=== PATIENT | female | born 1970 | race Caucasian/White ===

== ENCOUNTER 2021-06-14 14:30 | Emergency (ER) | payer OTHER ==
[~2021-06-14] VITALS: Ht 162.6 cm; Wt 58.6 kg
[2021-06-14 15:01] VITALS: BP 108/72
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
--- NOTE | 2021-06-14 16:13 | NUR ---
[employer] called will send an officer when available.
--- NOTE | 2021-06-14 17:04 | NUR ---
[employer] here. PATIENT DOES NOT WANT A SART KIT DONE, JUST WANTS TO BE SEEN FOR VAGINAL AND RECTAL PAIN.
[2021-06-14] MEDS ORDERED: azithromycin 250mg tablet PO ONE (19:20)
[2021-06-14] MEDS ORDERED: CefTRIAXone 1000mg IM Kit (w/lidocaine diluent) IM STA (19:20)
--- NOTE | 2021-06-14 20:35 | NUR ---
Pt is being discharged. Instructions given and questions answered. Walked out with geriatric social work professor.
[2021-06-15] MEDS ORDERED: METR-159 PO (15:47)
[2021-06-15] MEDS ORDERED: DOXY-11 PO (15:47)
== END 2021-06-14 20:39 | disposition home or self-care (01) ==
LOC: ER 14:31
DX: N73.0 Acute parametritis and pelvic cellulitis (principal); Z79.2 Long term (current) use of antibiotics; Z79.899 Other long term (current) drug therapy
CPT/HCPCS: 96372; 99284; J0696; 99283

== ENCOUNTER 2021-06-15 14:04 | Emergency (ER) | payer OTHER ==
[~2021-06-15] VITALS: Ht 162.6 cm; Wt 58.0 kg
[2021-06-15 14:19] VITALS: BP 125/90
[2021-06-15] MEDS ORDERED: cyclobenzaprine 10mg tablet PO ONE (15:20)
[2021-06-15] MEDS ORDERED: HYDROcodone/acetaminophen 10/325mg tab PO ONE (15:20)
[2021-06-15] MEDS ORDERED: METR-159 PO (15:47)
[2021-06-15] MEDS ORDERED: DOXY-11 PO (15:47)
[2021-06-15] MEDS ORDERED: DOXYCYCLINE 100MG CAPSULE PO STA (15:49)
[2021-06-15] MEDS ORDERED: metroNIDAZOLE 500mg tablet PO ONE (15:50)
== END 2021-06-15 16:18 | disposition home or self-care (01) ==
LOC: ER 14:05
DX: N73.9 Female pelvic inflammatory disease, unspecified (principal); R10.2 Pelvic and perineal pain; R10.30 Lower abdominal pain, unspecified
CPT/HCPCS: 99284

== ENCOUNTER 2021-12-11 07:29 | Emergency (ER) | payer OTHER ==
[~2021-12-11] VITALS: Ht 162.6 cm; Wt 59.5 kg
[2021-12-11 07:35] VITALS: BP 125/91
--- NOTE | 2021-12-11 07:54 | NUR ---
Patient requesting entry level sales representative to be with her, [facility] called spoke with Ramón. She stated that she just got to the office and will call back in approx. 10 min.
[2021-12-11] MEDS ORDERED: DOXY100C43 PO (23:10)
[2021-12-12] MEDS ORDERED: ONDA4TAB12 PO (15:42)
[2021-12-12] MEDS ORDERED: NAPR-1154 PO (15:42)
== END 2021-12-11 08:08 | disposition left against medical advice (07) ==
LOC: ER 07:30 → EEVIPCON 07:30 → ER 08:08
DX: T74.21XA Adult sexual abuse, confirmed, initial encounter (principal); Z53.21 Procedure and treatment not carried out due to patient leaving prior to being seen by health care provider

== ENCOUNTER 2021-12-11 19:13 | Emergency (ER) | payer OTHER, MEDICAID ==
[~2021-12-11] VITALS: Ht 162.6 cm; Wt 63.0 kg
--- NOTE | 2021-12-11 19:45 | NUR ---
PT HAS BEEN ROOMED. PT HAD CHECKED IN EARLIER TODAY AND LEFT PRIOR TO CHECKING IN AGAIN. PT DOES HAVE AN ADVOCATE. [facility] HAS BEEN CALLED. THEY STATED ADVOCATE IS ON HER WAY TO THE HOSPITAL. THEY DID NOT SAY WHETHER THE SART PROCESS NEEDS TO BE INITIATED AT THIS TIME OR NOT.
[2021-12-11] MEDS ORDERED: LORazepam 1 MG tablet PO ONE (20:30)
--- NOTE | 2021-12-11 20:32 | NUR ---
ADVOCATE IS IN THE ROOM WITH PT. IT IS WAS UNCLEAR WHETHER [facility] WAS CALLED EARLIER OR IF [facility] HAD CALLED PREVIOUSLY. I CALLED [facility] AND FILED A REPORT. CASE NUMBER IS [id number]. OFFICER WILL CONTACT WHETHER A SART IS APPROVED.
[2021-12-11] MEDS ORDERED: acetaminophen 325mg tablet PO ONE (21:30)
[2021-12-11] MEDS ORDERED: DOXY100C43 PO (23:10)
[2021-12-12 01:05] LABS: CLARITY,URINE CLEAR (Clear); COLOR,URINE YELLOW (Yellow); GLUCOSE, URINE NEGATIVE (Neg); KETONES,URINE NEGATIVE (Neg); LEUKOCYTE ESTERASE ,URINE NEGATIVE (Neg); NITRITES, URINE NEGATIVE (Neg); OCCULT BLOOD,URINE NEGATIVE (Neg); PH,URINE 5.5 (4.8-8.0); PROTEIN,URINE NEGATIVE (Neg); UROBILINOGEN,URINE 0.2 E.U/dL (0.2-1.0)
[2021-12-12 01:10] LABS: UA COLLECTION TYPE CLN CATCH MIDSTREAM
[2021-12-12] MEDS ORDERED: acetaminophen 325mg tablet PO ONE (01:55)
[2021-12-12] MEDS ORDERED: CefTRIAXone 500MG IM Kit w/LIDOcaine (for pt below or = to 150kg) IM ONE (02:55)
[2021-12-12] MEDS ORDERED: azithromycin 250mg tablet PO ONE (02:55)
[2021-12-12] MEDS ORDERED: TINIDAZOLE 500 MG TABLET PO ONE (02:55)
[2021-12-12] MEDS ORDERED: ketorolac tromethamine 15mg/ml inj. IM ONE (05:45)
--- NOTE | 2021-12-12 07:54 | NUR ---
pt was placed in SART room for exam. consents signed by pt. and witnessed by RN. Advocate from [facility] in room with pt. Exam performed, documented and results sent to [facility]. Pt given clothing and showered. will call taxi for transportation to [facility].
[2021-12-12 07:58] VITALS: BP 123/89
[2021-12-12] MEDS ORDERED: ONDA4TAB12 PO (15:42)
[2021-12-12] MEDS ORDERED: NAPR-1154 PO (15:42)
== END 2021-12-12 08:00 | disposition home or self-care (01) ==
LOC: ER 19:13 → EEVIPCON 19:13 → ER 23:09
DX: T74.21XA Adult sexual abuse, confirmed, initial encounter (principal); Z00.00 Encounter for general adult medical examination without abnormal findings
CPT/HCPCS: 81003; 96372; 99284; J0696; J1885

== ENCOUNTER 2021-12-12 14:26 | Emergency (ER) | payer MEDICAID, OTHER ==
[~2021-12-12] VITALS: Ht 162.6 cm; Wt 64.1 kg
[~2021-12-12 14:26] MED LIST: DOXY100C43 PO
[2021-12-12 14:38] VITALS: BP 117/83
--- NOTE | 2021-12-12 15:23 | NUR ---
per eugenia vuong, cancel all existing orders that havent been completed. all orders cancelled
[2021-12-12] MEDS ORDERED: NAPR-1154 PO (15:42)
[2021-12-12] MEDS ORDERED: ONDA4TAB12 PO (15:42)
== END 2021-12-12 16:02 | disposition home or self-care (01) ==
LOC: ER 14:27
DX: Z13.89 Encounter for screening for other disorder (principal); R10.30 Lower abdominal pain, unspecified; R10.2 Pelvic and perineal pain; F17.200 Nicotine dependence, unspecified, uncomplicated; Z59.00 Homelessness unspecified; Z79.2 Long term (current) use of antibiotics; Z79.899 Other long term (current) drug therapy
CPT/HCPCS: 71045; 99283

== ENCOUNTER 2021-12-13 14:27 | Emergency (ER) | payer MEDICAID ==
[~2021-12-13] VITALS: Ht 162.6 cm; Wt 64.1 kg
[~2021-12-13 14:27] MED LIST changes: +NAPR-1154 PO; +ONDA4TAB12 PO
--- NOTE | 2021-12-13 14:41 | NUR ---
PT STILL USING PHONE AT THIS TIME.
[2021-12-13 14:55] VITALS: BP 122/74
== END 2021-12-13 14:30 | disposition left against medical advice (07) ==
LOC: ER 14:27
DX: Z13.89 Encounter for screening for other disorder (principal); R10.2 Pelvic and perineal pain; R30.0 Dysuria; Z59.00 Homelessness unspecified; Z79.2 Long term (current) use of antibiotics; Z79.899 Other long term (current) drug therapy
CPT/HCPCS: 99281

== ENCOUNTER 2021-12-16 14:00 | Emergency (ER) | payer MEDICAID ==
[~2021-12-16] VITALS: Ht 165.1 cm; Wt 65.9 kg
[2021-12-16 14:58] VITALS: BP 128/83
== END 2021-12-16 17:46 | disposition left against medical advice (07) ==
LOC: ER 14:01 → EEVIPCON 14:01 → ER 17:46
DX: T76.21XA Adult sexual abuse, suspected, initial encounter (principal); Z53.21 Procedure and treatment not carried out due to patient leaving prior to being seen by health care provider; Y09 Assault by unspecified means

== ENCOUNTER 2021-12-17 12:26 | Emergency (ER) | payer MEDICAID ==
[~2021-12-17] VITALS: Ht 162.6 cm; Wt 64.1 kg
[2021-12-17 12:31] VITALS: BP 143/98
--- NOTE | 2021-12-17 13:00 | NUR ---
[facility] PT IN LOBBY FOR DISCHARGE.
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
== END 2021-12-17 14:00 | disposition home or self-care (01) ==
LOC: ER 12:26
DX: T76.21XA Adult sexual abuse, suspected, initial encounter (principal); R10.2 Pelvic and perineal pain; R10.9 Unspecified abdominal pain
CPT/HCPCS: 99283

== ENCOUNTER 2021-12-18 14:31 | Emergency (ER) | payer MEDICAID ==
[~2021-12-18] VITALS: Ht 162.6 cm; Wt 64.1 kg
[2021-12-18 14:36] VITALS: BP 133/93
== END 2021-12-18 16:53 | disposition home or self-care (01) ==
LOC: ER 14:32
DX: Z04.41 Encounter for examination and observation following alleged adult rape (principal); Z59.00 Homelessness unspecified
CPT/HCPCS: 99281

== ENCOUNTER 2021-12-19 16:29 | Emergency (ER) | payer MEDICAID ==
[~2021-12-19] VITALS: Ht 162.6 cm; Wt 64.0 kg
[2021-12-19 16:52] VITALS: BP 140/82
--- NOTE | 2021-12-19 16:59 | NUR ---
PT SEEN AND DC'D BY PROVIDER
== END 2021-12-19 16:59 | disposition home or self-care (01) ==
LOC: ER 16:30
DX: Z00.00 Encounter for general adult medical examination without abnormal findings (principal); Z59.00 Homelessness unspecified
CPT/HCPCS: 99281

== ENCOUNTER 2021-12-23 14:26 | Emergency (ER) | payer MEDICAID ==
[~2021-12-23] VITALS: Ht 162.6 cm; Wt 64.1 kg
[2021-12-23 14:37] VITALS: BP 126/87
[2021-12-23] MEDS ORDERED: ketorolac trometh. 30mg/ml inj. IM ONE (16:55)
== END 2021-12-23 17:13 | disposition home or self-care (01) ==
LOC: ER 14:27
DX: R10.2 Pelvic and perineal pain (principal); Z79.899 Other long term (current) drug therapy; Z59.00 Homelessness unspecified
CPT/HCPCS: 96372; 99283; J1885

== ENCOUNTER 2021-12-26 13:16 | Emergency (ER) | payer SELFPAY ==
[~2021-12-26] VITALS: Ht 162.6 cm; Wt 63.6 kg
[~2021-12-26 13:16] MED LIST changes: -DOXY100C43 PO
[2021-12-26 13:20] VITALS: BP 116/76
== END 2021-12-26 16:23 | disposition home or self-care (01) ==
LOC: ER 13:17
DX: Z04.41 Encounter for examination and observation following alleged adult rape (principal); Z59.00 Homelessness unspecified
CPT/HCPCS: 99283

== ENCOUNTER 2021-12-30 03:52 | Emergency (ER) | payer MEDICAID ==
[~2021-12-30] VITALS: Ht 162.6 cm; Wt 64.1 kg
[2021-12-30 03:54] VITALS: BP 109/81
[2021-12-30] MEDS ORDERED: TINIDAZOLE 500 MG TABLET PO ONE (06:15)
[2021-12-30] MEDS ORDERED: azithromycin 250mg tablet PO ONE (06:15)
[2021-12-30] MEDS ORDERED: CefTRIAXone 500MG IM Kit w/LIDOcaine (for pt below or = to 150kg) IM ONE (06:15)
[2021-12-30] MEDS ORDERED: LEVONORGESTREL 1.5MG tablet 1.5 MG TABLET PO ONE (06:15)
[2021-12-30 06:49] LABS: URINE HCG NEGATIVE (NEG)
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
[2021-12-30] MEDS ORDERED: ketorolac tromethamine 15mg/ml inj. IM ONE (08:15)
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
== END 2021-12-30 10:13 | disposition home or self-care (01) ==
LOC: EEVIPCON 03:53 → ER 03:53
DX: N93.8 Other specified abnormal uterine and vaginal bleeding (principal); R10.2 Pelvic and perineal pain; M79.89 Other specified soft tissue disorders; Z59.00 Homelessness unspecified
CPT/HCPCS: 81025; 96372; 99284; J0696; J1885

== ENCOUNTER 2022-01-01 08:39 | Emergency (ER) | payer MEDICAID ==
[~2022-01-01] VITALS: Ht 162.6 cm; Wt 64.1 kg
[2022-01-01 08:42] VITALS: BP 120/88
[2022-01-01] MEDS ORDERED: naproxen 500mg tablet PO ONE (10:35)
== END 2022-01-01 11:12 | disposition home or self-care (01) ==
LOC: ER 08:40
DX: Z00.00 Encounter for general adult medical examination without abnormal findings (principal); Z59.00 Homelessness unspecified
CPT/HCPCS: 99283

== ENCOUNTER 2022-01-22 01:34 | Emergency (ER) | payer MEDICAID, OTHER ==
[~2022-01-22] VITALS: Ht 162.6 cm; Wt 62.5 kg
--- NOTE | 2022-01-22 01:55 | NUR ---
Officer in charge of case Colin Boland ([id number]) Case #[id number]. Sourav will have Officer Krystian call to get approval for SART exam.
--- NOTE | 2022-01-22 02:16 | NUR ---
SART Exam approved by [facility] Hands Assembler Corporal Rosado.
--- NOTE | 2022-01-22 02:30 | NUR ---
1st attempt, unable to get hold of sart nurse special education educational assistant at this time.
--- NOTE | 2022-01-22 02:43 | NUR ---
contacted [facility].
--- NOTE | 2022-01-22 03:03 | NUR ---
[facility] refused to send patient advocate.
--- NOTE | 2022-01-22 03:08 | NUR ---
2nd attempt, unable to get hold of clinical applications specialist sart nurse at this time.
--- NOTE | 2022-01-22 04:46 | NUR ---
3rd attempt, unable to contact sart nurse manager transportation planning. pt updated of wait.
--- NOTE | 2022-01-22 06:12 | NUR ---
sart nurse instructional designer called back. sart nurse is coming to see the patient. pt awaiting sart nurse instructional designer. pt updated of wait.
[2022-01-22 09:56] LABS: URINE HCG NEGATIVE (NEG)
[2022-01-22 10:11] LABS: CLARITY,URINE CLOUDY (Clear); COLOR,URINE YELLOW (Yellow); GLUCOSE, URINE NEGATIVE (Neg); KETONES,URINE >=80 mg/dl (Neg); LEUKOCYTE ESTERASE ,URINE NEGATIVE (Neg); NITRITES, URINE NEGATIVE (Neg); OCCULT BLOOD,URINE NEGATIVE (Neg); PROTEIN,URINE NEGATIVE (Neg); UROBILINOGEN,URINE 0.2 E.U/dL (0.2-1.0)
[2022-01-22 10:18] LABS: UA COLLECTION TYPE VOIDED
[2022-01-22 10:19] LABS: MUCUS STRANDS MANY /LPF (Neg); SQUAMOUS EPITHELIAL CELL,UR MANY /LPF (FEW)
[2022-01-22 10:20] LABS: CAL OXALATE CRYSTALS 4+ /HPF (NEGATIVE)
[2022-01-22 10:21] LABS: BACTERIA,URINE FEW /HPF (Neg); RBC,URINE 0-2 /HPF (0-2); WBC,URINE 0-4 /HPF (0-4)
[2022-01-22] MEDS ORDERED: azithromycin 250mg tablet PO ONE (11:15)
[2022-01-22] MEDS ORDERED: TINIDAZOLE 500 MG TABLET PO ONE (11:15)
[2022-01-22] MEDS: CefTRIAXone 500MG IM Kit w/LIDOcaine IM ONE ×2 (11:47→11:54)
[2022-01-22 12:01] VITALS: BP 105/70
== END 2022-01-22 12:03 | disposition home or self-care (01) ==
LOC: ER 01:34
DX: Z04.41 Encounter for examination and observation following alleged adult rape (principal); R10.2 Pelvic and perineal pain; Z59.00 Homelessness unspecified
CPT/HCPCS: 36415; 81001; 81025; 86592; 87210; 87491; 87591; 99285; J7030; J0696

== ENCOUNTER 2022-01-22 14:41 | Emergency (ER) | payer MEDICAID, OTHER ==
[~2022-01-22] VITALS: Ht 162.6 cm; Wt 48.7 kg
[2022-01-22 14:57] VITALS: BP 129/87
[2022-01-22] MEDS ORDERED: ketorolac trometh. 30mg/ml inj. IM ONE (15:55)
== END 2022-01-22 16:31 | disposition home or self-care (01) ==
LOC: ER 14:42
DX: R10.2 Pelvic and perineal pain (principal); Z56.0 Unemployment, unspecified
CPT/HCPCS: 87210; 96372; 99283; J1885

== ENCOUNTER 2022-02-06 16:51 | Emergency (ER) | payer MEDICAID | END 2022-02-06 18:24 | disposition left against medical advice (07) | LOC: ER 16:53 | DX: Z11.3 Encounter for screening for infections with a predominantly sexual mode of transmission (principal); Z53.21 Procedure and treatment not carried out due to patient leaving prior to being seen by health care provider ==

== ENCOUNTER 2022-02-07 13:54 | Emergency (ER) | payer MEDICAID | END 2022-02-07 15:33 | disposition left against medical advice (07) | LOC: ER 13:54 | DX: N73.9 Female pelvic inflammatory disease, unspecified (principal); Z53.21 Procedure and treatment not carried out due to patient leaving prior to being seen by health care provider ==

== ENCOUNTER 2022-02-23 03:32 | Emergency (ER) | payer MEDICAID ==
[~2022-02-23] VITALS: Ht 162.6 cm; Wt 59.1 kg
[2022-02-23 04:14] VITALS: BP 134/93
[2022-02-23 07:10] LABS: CLARITY,URINE SLIGHTLY CLOUDY (Clear); COLOR,URINE YELLOW (Yellow); GLUCOSE, URINE NEGATIVE (Neg); KETONES,URINE >=80 mg/dl (Neg); LEUKOCYTE ESTERASE ,URINE NEGATIVE (Neg); NITRITES, URINE NEGATIVE (Neg); OCCULT BLOOD,URINE NEGATIVE (Neg); PROTEIN,URINE NEGATIVE (Neg); UROBILINOGEN,URINE 0.2 E.U/dL (0.2-1.0)
[2022-02-23 07:11] LABS: UA COLLECTION TYPE CLN CATCH MIDSTREAM
[2022-02-23 07:19] LABS: BACTERIA,URINE 1+ /HPF (Neg); CAL OXALATE CRYSTALS 1+ /HPF (NEGATIVE); MUCUS STRANDS MODERATE /LPF (Neg); RBC,URINE NONE SEEN /HPF (0-2); SQUAMOUS EPITHELIAL CELL,UR MODERATE /LPF (FEW); WBC,URINE 0-4 /HPF (0-4)
[2022-02-23 07:21] LABS: URINE AMPHETAMINE SCREEN POSITIVE (Neg); URINE BARBITUATE SCREEN NEGATIVE (Neg); URINE BENZODIAZEPINES SCREEN NEGATIVE (Neg); URINE CANNABINOID SCREEN POSITIVE (Neg); URINE COCAINE SCREEN NEGATIVE (Neg); URINE METHADONE SCREEN NEGATIVE (Neg); URINE OPIATE SCREEN NEGATIVE (Neg); URINE PHENCYCLIDINE SCREEN NEGATIVE (Neg)
== END 2022-02-23 07:09 | disposition left against medical advice (07) ==
LOC: ER 03:33
DX: R10.2 Pelvic and perineal pain (principal); R30.0 Dysuria; F17.200 Nicotine dependence, unspecified, uncomplicated; Z79.899 Other long term (current) drug therapy
CPT/HCPCS: 80305; 81001; 99283

== ENCOUNTER 2022-02-27 23:44 | Emergency (ER) | payer MEDICAID ==
[~2022-02-27] VITALS: Ht 162.6 cm; Wt 54.5 kg
[2022-02-27 23:54] VITALS: BP 138/90
--- NOTE | 2022-02-27 23:57 | NUR ---
patient completed triage and then stated "im not going to pee in a cup unless the doctor can just call me with the results and call in an antibiotic tomorrow". educated patient on procedure of ER visit. patient decided to leave w/o being seen.
== END 2022-02-27 23:59 | disposition left against medical advice (07) ==
LOC: ER 23:45
DX: Z87.448 Personal history of other diseases of urinary system (principal); Z53.21 Procedure and treatment not carried out due to patient leaving prior to being seen by health care provider

== ENCOUNTER 2022-02-28 16:28 | Emergency (ER) | payer MEDICAID ==
[~2022-02-28] VITALS: Ht 162.6 cm; Wt 55.0 kg
[2022-02-28 16:58] VITALS: BP 103/76
== END 2022-02-28 18:04 | disposition left against medical advice (07) ==
LOC: ER 16:29
DX: R10.2 Pelvic and perineal pain (principal); Z53.21 Procedure and treatment not carried out due to patient leaving prior to being seen by health care provider

== ENCOUNTER 2022-03-04 14:37 | Emergency (ER) | payer MEDICAID ==
[~2022-03-04] VITALS: Ht 162.6 cm; Wt 54.5 kg
[2022-03-04 15:19] VITALS: BP 102/69
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
== END 2022-03-04 16:27 | disposition left against medical advice (07) ==
LOC: ER 14:38
DX: S00.81XA Abrasion of other part of head, initial encounter (principal); Y04.0XXA Assault by unarmed brawl or fight, initial encounter; R07.9 Chest pain, unspecified; M54.9 Dorsalgia, unspecified; Y93.89 Activity, other specified; Y92.89 Other specified places as the place of occurrence of the external cause; Y99.8 Other external cause status
CPT/HCPCS: 71045; 93005; 99284; A6449